=== PATIENT | female | born 1950 | race Caucasian/White ===

== ENCOUNTER 2023-12-15 06:42 | Day surgery (SDC) | payer OTHER ==
[~2023-12-15] VITALS: Ht 170.2 cm; Wt 95.5 kg
[~2023-12-15 06:42] MED LIST: FAMO20 PO; HYDR25TA2 PO; LISI-894 PO; LORA10TA7 PO; LOVA20TA73 PO; METO25 PO; TRAZ-252 PO
[2023-12-15] MEDS ORDERED: SODIUM CHLORIDE 0.9% 1,000 ML ONE (07:11)
[2023-12-15] MEDS ORDERED: EPINEPHrine 1:10,000 [1 MG/10 ML] SYRINGE ONE (07:30)
[2023-12-15] MEDS ORDERED: ATROPINE SULFATE 0.1 MG/ML 10 ML SYRINGE IVP ONE (07:31)
[2023-12-15] MEDS ORDERED: FLUMAZENIL 0.1 MG/ML 5 ML VIAL IVP ONE (07:31)
[2023-12-15] MEDS ORDERED: SODIUM TETRADECYL SULFATE 3% 60 MG/2 ML VIAL IVP ONE (07:31)
[2023-12-15] MEDS ORDERED: DiphenhydrAMINE HCL 50 MG/ML VIAL ONE (07:31)
[2023-12-15] MEDS ORDERED: NALOXONE HCL 0.4 MG/ML VIAL ONE (07:31)
[2023-12-15] MEDS ORDERED: FentaNYL CITRATE PF 100 MCG/2 ML VIAL ONE (07:33)
[2023-12-15] MEDS ORDERED: MIDAZOLAM HCL 2 MG/2 ML VIAL ONE (07:33)
[2023-12-15] MEDS: SODIUM CHLORIDE 0.9% 1,000 ML IV ONE (07:54)
[2023-12-15 09:05] VITALS: PULSE 62; RESP 18; O2SAT 98
[2023-12-15] MEDS ORDERED: MethylPREDNISolone SOD SUCC 125 MG/2 ML VIAL ONE (09:10)
[2023-12-15] MEDS: MethylPREDNISolone SOD SUCC 125 MG/2 ML VIAL IVP ONE (09:42)
== END 2023-12-15 10:50 | disposition home or self-care (01) ==
LOC: SURGERY 06:42
PROVIDERS: ATTEND Internal Medicine Critical Care Medicine
DX: J38.4 Edema of larynx (principal); B37.0 Candidal stomatitis; Z88.6 Allergy status to analgesic agent; Z88.8 Allergy status to other drugs, medicaments and biological substances; Z98.890 Other specified postprocedural states; Z90.710 Acquired absence of both cervix and uterus; Z79.899 Other long term (current) drug therapy; Z20.822 Contact with and (suspected) exposure to COVID-19
CPT/HCPCS: 31623; 87206; 87101; 87220; 87070; 88108; 88305; 31624; 71045; 87015; J3010; J2250; J2930; J7030; J0171; J0461; J1200; J2310; J3490; Q9967